=== PATIENT | female | born 1965 | race African-American/Black ===

== ENCOUNTER 2016-09-12 10:32 | Emergency (ER) | payer OTHER ==
[2016-09-12 10:55] LABS: BASOPHIL 0.2 % (0-2); EOSINOPHIL 2.9 % (0-5); HCT 40.6 % (37.0-47.0); HGB 13.5 g/dl (12.5-16.0); LYMPHOCYTE 29.6 % (15-48); MCH 30.8 pg (25.0-31.0); MCHC 33.3 g/dL (32.0-36.0); MCV 92.5 fL (78.0-100.0); MONOCYTE 9.3 % (0-12); MPV 9.7 fL (6.0-9.5); PLT 296 K/uL (150-400); RBC 4.39 M/uL (4.20-5.40); RDW 13.1 % (11.5-14.0); WBC 5.5 K/uL (4.0-10.5)
[2016-09-12 11:05] LABS: INR 0.97 (0.9-1.2); PROTHROMBIN TIME 12.5 SECONDS (11.7-14.0); PTT 25.4 SECONDS (23.2-31.4)
[2016-09-12 11:12] LABS: ALBUMIN 4.6 g/dL (3.5-5.0); BILIRUBIN - TOTAL 0.4 mg/dL (0.1-1.0); CREATININE 0.9 mg/dL (0.5-1.0); GLOBULIN (CALCULATION) 2.9 g/dL (2.2-4.2); MAGNESIUM 1.93 mg/dL (1.40-2.10); POTASSIUM 3.5 mmol/L (3.5-5.1); TOTAL PROTEIN 7.5 g/dL (6.4-8.3)
[2016-09-12 11:15] LABS: CKMB 1.69 ng/mL (0.97-4.94); MYOGLOBIN 48 ng/mL (26-65); PRO-BNP 34 pg/mL (0-125); TROPONIN T < 0.010 ng/mL
== END 2016-09-12 14:00 | disposition home or self-care (01) ==
LOC: FER 10:32
PROVIDERS: Internal Medicine
DX: R07.89 Other chest pain (principal); I10 Essential (primary) hypertension; Z79.899 Other long term (current) drug therapy
CPT/HCPCS: 36415; 71010; 80053; 82550; 82553; 83735; 83874; 83880; 84484; 85025; 85610; 85730; 93005; J2405

== ENCOUNTER → 2017-03-22 | Day surgery (SDC) | payer OTHER ==
[~2017-03-22] VITALS: Ht 175.3 cm; Wt 88.2 kg
[2017-03-22 07:46] LABS: MCHC 33.3 g/dL (32.0-36.0); MCV 87.1 fL (78.0-100.0); MPV 10.1 fL (6.0-9.5); RBC 4.48 M/uL (4.20-5.40); RDW 12.9 % (11.5-14.0); WBC 4.6 K/uL (4.0-10.5)
[2017-03-22 08:05] LABS: ALBUMIN 3.9 g/dL (3.5-5.0); BILIRUBIN - TOTAL 0.4 mg/dL (0.1-1.0); CREATININE 0.7 mg/dL (0.5-1.0); GLOBULIN (CALCULATION) 3.1 g/dL (2.2-4.2); POTASSIUM 3.9 mmol/L (3.5-5.1)
== END | disposition home or self-care (01) ==
LOC: FAS 07:31
PROVIDERS: Surgery
DX: Z12.11 Encounter for screening for malignant neoplasm of colon (principal); I10 Essential (primary) hypertension; J30.2 Other seasonal allergic rhinitis; E55.9 Vitamin D deficiency, unspecified; M19.90 Unspecified osteoarthritis, unspecified site; Z88.5 Allergy status to narcotic agent; Z90.710 Acquired absence of both cervix and uterus; Z90.89 Acquired absence of other organs; Z86.11 Personal history of tuberculosis; Z80.3 Family history of malignant neoplasm of breast; Z83.3 Family history of diabetes mellitus; Z79.899 Other long term (current) drug therapy; Z98.890 Other specified postprocedural states
CPT/HCPCS: G0121; 36415; 80053; J2704